=== PATIENT | male | born 1970 | race Caucasian/White ===

== ENCOUNTER 2020-05-13 10:26 | Emergency (ER) | payer SELFPAY ==
[2020-05-13] MEDS ORDERED: FENTANYL CITR 100 MCG/2 ML ONE (14:19)
[2020-05-13 14:49] LABS: Absolute Lymphocytes (CBC) 1.3 K/uL (0.7-4.9); Basophils % 0.4 % (0-1.3); Hematocrit 35.5 % (39.6-49.0); Lymphocytes % 12.4 % (15.3-44.8); MPV 7.6 fL (7.6-11.3); RBC Red Blood Cell Count 3.79 M/uL (4.33-5.43)
--- NOTE | 2020-05-13 15:05 | RAD REPORT ---
EXAM DESCRIPTION: USExtrem Venous W Compress Bil05/13/2020 2:59 pm CLINICAL HISTORY: Leg swelling and pain COMPARISON: none FINDINGS: The common femoral, superficial femoral, popliteal and posterior tibial veins bilaterally are compressible and demonstrate augmentation. Doppler demonstrates good flow. IMPRESSION: No evidence of deep venous thrombosis involving either lower extremity.
[2020-05-13] MEDS ORDERED: HYDROCODONE/APAP 7.5/325 MG TAB ONE (15:07)
[2020-05-13] MEDS ORDERED: DOXYCYCLINE 100 MG CAP PO ONE (15:07)
[2020-05-13] MEDS ORDERED: MUPIROCIN 2% OINT 22GM TUBE TOP ONE (15:07)
[2020-05-13] MEDS ORDERED: SMZ./TMP. 800/160 MG TABLET ONE (15:07)
[2020-05-13 15:20] LABS: BUN Blood Urea Nitrogen 20 mg/dL (7-18); Bicarbonate 31 mmol/L (21-32); Glucose Level 86 mg/dL (74-106); NT PRO-BNP 44 pg/mL (<125); Potassium 4.3 mmol/L (3.5-5.1); Sodium Level 136 mmol/L (136-145)
--- NOTE | 2020-05-13 15:47 | ER ---
Nurse's Notes [facility] Name: Timo Bender Age: 49 yrs Sex: Male : 1970 Arrival Date: 05/13/2020 Time: 10:29 Bed 18 Private MD: Diagnosis: Cellulitis of left lower limb;Cellulitis of right lower limb Presentation: 05/13 11:48 Chief complaint: Patient states: Cutting trees last week, the next day started having ca1 rash and sores on arms and legs. Sores getting worse, now both legs are red, hurting and swollen. Coronavirus screen: Client denies travel out of the [place] in the last 14 days. At this time, the client does not indicate any symptoms associated with coronavirus-19. Ebola Screen: Patient negative for fever greater than or equal to 101.5 degrees Fahrenheit, and additional compatible Ebola Virus Disease symptoms Patient denies exposure to infectious person. Patient denies travel to an Ebola-affected area in the 21 days before illness onset. No symptoms or risks identified at this time. Initial Sepsis Screen: Does the patient meet any 2 criteria? No. Patient's initial sepsis screen is negative. Does the patient have a suspected source of infection? No. Patient's initial sepsis screen is negative. Risk Assessment: Do you want to hurt yourself or someone else? Patient reports no desire to harm self or others. Onset of symptoms was May 13, 2020. 11:48 Method Of Arrival: Ambulatory ca1 11:48 Acuity: CRISTO 3 ca1 Triage Assessment: 13:15 General: Appears in no apparent distress. uncomfortable, Behavior is cooperative, bp appropriate for age, anxious. Pain: Complains of pain in right leg and left leg. EENT: No deficits noted. Neuro: No deficits noted. Cardiovascular: No deficits noted. Respiratory: No deficits noted. GI: No signs and/or symptoms were reported involving the gastrointestinal system. : No signs and/or symptoms were reported regarding the genitourinary system. Derm: Rash noted that is itchy, red. Musculoskeletal: No deficits noted. Historical: - Allergies: 11:50 No Known Allergies; ca1 - Home Meds: 11:50 None [Active]; ca1 - PMHx: 11:50 None; ca1 - PSHx: 11:50 None; ca1 - Immunization history:: Flu vaccine is up to date. - Social history:: Smoking status: Patient denies any tobacco usage or history of. Screenin:00 Abuse screen: Denies threats or abuse. Denies injuries from another. Nutritional bp screening: No deficits noted. Tuberculosis screening: No symptoms or risk factors identified. Fall Risk None identified. Assessment: 13:15 General: SEE TRIAGE NOTE. bp 14:44 Reassessment: No changes from previously documented assessment. Patient and/or family bp updated on plan of care and expected duration. Pain level reassessed. Patient is alert, oriented x 3, equal unlabored respirations, skin warm/dry/pink. PT TO [place]. 15:10 Reassessment: No changes from previously documented assessment. Patient and/or family bp updated on plan of care and expected duration. Pain level reassessed. Patient is alert, oriented x 3, equal unlabored respirations, skin warm/dry/pink. PT RETURNED FROM [facility]/S. 16:36 Reassessment: D/C ON HOLD FOR ABX AND WOUND CARE. bp Vital Signs: 11:48 BP 102 / 77; Pulse 85; Resp 16 S; Temp 97.5(TE); Pulse Ox 100% on R/A; Weight 74.84 kg ca1 (R); Height 5 ft. 7 in. (170.18 cm) (R); Pain 7/10; 14:00 BP 107 / 68; Pulse 74; Resp 16; Pulse Ox 99% ; bp 15:07 BP 114 / 79; Pulse 80; Resp 16; Pulse Ox 99% ; bp 11:48 Body Mass Index 25.84 (74.84 kg, 170.18 cm) ca1 ED Course: 10:29 Patient arrived in ED. ds1 11:50 Triage completed. ca1 11:50 Arm band placed on right wrist. ca1 13:17 Clinton Malone, KAYLEEN is Primary Nurse. bp 13:17 Alcides Adams PA is PHCP. cp 13:17 Alcides Spears MD is Attending Physician. cp 14:00 Patient has correct armband on for positive identification. Placed in gown. Bed in low bp position. Call light in reach. Side rails up X2. 14:10 Inserted saline lock: 20 gauge in right forearm, using aseptic technique. Blood bp collected. 15:34 EKG done, by ED staff, reviewed by Alcides LARSON. mh5 17:14 No provider procedures requiring assistance completed. IV discontinued, intact, bp bleeding controlled, No redness/swelling at site. Pressure dressing applied. 17:14 Wound care: to abrasion, located on left leg and right leg was dressed with Neosporin, bp Patient tolerated well. Administered Medications: 14:10 Drug: fentaNYL (PF) 25 mcg Route: IVP; Site: right forearm; bp 15:07 Follow up: Response: Pain is decreased bp 15:30 Drug: Clindamycin 600 mg Route: IVPB; Infused Over: 30 mins; Site: right antecubital; bp 17:12 Follow up: IV Status: Completed infusion; IV Intake: 50ml bp 16:00 Drug: Bactrim (160 mg-800 mg (DS) 1 tablet Route: PO; bp 17:12 Follow up: Response: No adverse reaction bp Intake: 17:12 IV: 50ml; Total: 50ml. bp Outcome: 15:47 Discharge ordered by MD. cp 17:15 Discharged to home ambulatory. bp 17:15 Condition: stable 17:15 Discharge instructions given to patient, Instructed on discharge instructions, follow up and referral plans. medication usage, Demonstrated understanding of instructions, follow-up care, medications, wound care, Prescriptions given X 3. 17:15 Patient left the ED. bp Signatures: Angeline Cruz ds1 Alcides Adams PA PA cp Martinez, Maria [facility] Clinton Malone, RN RN bp Emani Chaidez RN RN ca1
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
[2020-05-13] MEDS ORDERED: CLINDAMYCIN 600MG/D5W 600 MG/50 ML BAG IV ONE (16:44)
[2020-05-13 17:34] VITALS: TEMP 97.5
[2020-05-13 17:35] VITALS: O2SAT 99
[2020-05-13 17:36] VITALS: BP 114/79
--- NOTE | 2020-05-14 06:50 | EKG ---
Test Date: 2020-05-13 Test Time: 15:06:01 Recruitment Coordinator: TEETEE MEASUREMENT RESULTS: Intervals: Rate: 75 IA: 150 QRSD: 80 QT: 378 QTc: 422 [place]: P: 49 IA: 150 QRS: 86 T: 51 INTERPRETIVE STATEMENTS: Normal sinus rhythm Normal ECG No previous ECG available for comparison Electronically Signed On 05-14-20 06:49:12 MANAGER SPEECH by Johnathon Quevedo
== END 2020-05-13 17:15 | disposition home or self-care (01) ==
LOC: ER 10:26
DX: L03.116 Cellulitis of left lower limb (principal); L03.115 Cellulitis of right lower limb
CPT/HCPCS: 36415; 80048; 83880; 85025; 93005; 93970; 96365; 96366; 96375; 99284; J3010